=== PATIENT | female | born 1980 | race Two or more races ===

== ENCOUNTER 2019-08-23 13:41 | Emergency (ER) | payer BC ==
[2019-08-23 15:02] VITALS: BP 112/77
[2019-08-23 16:06] LABS: Influenza A Molecular Negative (Negative); Influenza B Molecular Negative (Negative)
--- NOTE | 2019-08-23 16:34 | UC ---
FLU HPI - HPI Summary HPI Summary: 39-year-old woman comes in with a chief complaint of headache chills cough chest pain. Symptoms started 2 days ago with a frontal headache and feeling ill. She developed a cough. Also having chills. Denies any sputum. Yesterday noticed about 15 minutes of sternal sharp chest pain that was worse with deep inspiration. Today she had the same sharp chest pain in the same area for about 2 hours. She has no chest pain now. Denies any shortness of breath. Her mother from a pulmonary embolus. Patient had some left ankle swelling about 2 weeks ago. She's been using compression stockings and has no calf pain or swelling now. No fevers measured but the patient also does not have a thermometer. Patient is 14 weeks . Patient has had an infected right lower molar which she is just finishing one week of amoxicillin for an she is seeing a dentist for it. Denies any pain in the tooth now she has follow-up with a dentist in 1 week. - History of Current Complaint Chief Complaint: UCHeadache Stated Complaint: COUGH HEADACHE Time Seen by Provider: 08/23/19 15:53 Pain Intensity: 6 - Allergy/Home Medications Allergies/Adverse Reactions: Allergies Allergy/AdvReac Type Severity Reaction Status Date / Time No Known Allergies Allergy Verified 08/23/19 15:02 Home Medications: Home Medications Amoxicillin 250 mg PO DAILY 08/23/19 [History Confirmed 08/23/19] 95/Iron Fum/Folic/Dha [ + Dha Combo Pack] 1 tab PO DAILY [History Confirmed 08/23/19] PMH/Surg Hx/FS Hx/Imm Hx Previously Healthy: Yes - Surgical History Surgical History: Yes Surgery Procedure, Year, and Place: appendectomy - Family History Known Family History: Positive: Other - MOTHER; PE - Social History Alcohol Use: None Substance Use Type: None Smoking Status (MU): Never Smoked Tobacco Review of Systems All Other Systems Reviewed And Are Negative: Yes Constitutional: Positive: Other - SEE HPI Skin: Positive: Negative Eyes: Positive: Negative ENT: Positive: Other - SEE HPI Respiratory: Positive: Cough - SEE HPI Cardiovascular: Positive: Chest Pain - SEE HPI Gastrointestinal: Positive: Negative Motor: Positive: Negative Neurovascular: Positive: Negative Musculoskeletal: Positive: Other: - SEE HPI Neurological/Mental Status: Positive: Headache - SEE HPI Psychological: Positive: Negative Is Patient Immunocompromised?: No Physical Exam Triage Information Reviewed: Yes Appearance: Well-Appearing, No Pain Distress, Well-Nourished Vital Signs: Initial Vital Signs Temp 99.9 F 08/23/19 14:55 Pulse 91 08/23/19 14:55 Resp 16 08/23/19 14:55 BP 112/77 08/23/19 14:55 Pulse Ox 99 08/23/19 14:55 Vital Signs Reviewed: Yes Eye Exam: Normal Eyes: Positive: Conjunctiva Clear ENT: Positive: Pharynx normal, TMs normal, Other - Occasional loose cough Neck: Positive: Supple Respiratory: Positive: Chest non-tender, Lungs clear, Normal breath sounds, No respiratory distress Cardiovascular: Positive: RRR Abdomen Description: Positive: Nontender, Soft Musculoskeletal: Positive: Strength Intact, ROM Intact, No Edema - Calves not swollen nontender to palpation. Neurological: Positive: Alert, Muscle Tone Normal Psychological: Positive: Normal Response To Family, Age Appropriate Behavior Skin Exam: Normal Flu Course/Dx - Course Course Of Treatment: Influenza swab negative. Patient has no chest pain here in clinic given that she has no calf pain or swelling or personal history of DVT or pulmonary embolus and no recent travel patient is low risk for pulmonary embolus at this time. He did discuss the signs and symptoms of DVT and pulmonary embolus and I recommended that if she got any other symptoms she needs to be evaluated right away the emergency department. Plan is to treat symptomatically for a viral illness. Patient does not have a primary care doctor but is seeing Dr. Tomlin' s PHYSICAL THERAPIST group. Gave her follow-up information for [facility]. Did discuss if she gets worse she is to go the emergency department. - Differential Dx/Diagnosis Provider Diagnosis: Influenza-like illness, Chest pain Discharge ED - Sign-Out/Discharge Documenting (check all that apply): Patient Departure All imaging exams completed and their final reports reviewed: No Studies - Discharge Plan Condition: Stable Disposition: HOME Patient Education Materials: Chest Pain (ED), Viral Syndrome (ED) Forms: *Work Release Referrals: [facility] [Outside] [facility] [Outside] Additional Instructions: FOLLOW UP WITH YOUR DOCTOR IF NOT COMPLETELY IMPROVED. GET REEVALUATED SOONER IF NOT IMPROVED. GO TO THE EMERGENCY DEPARTMENT IF WORSE; CHEST PAIN, SHORTNESS OF BREATH, CALF PAIN/SWELLING, YOU FEEL ILL OR ANY QUESTIONS OR CONCERNS. - Billing Disposition and Condition Condition: STABLE Disposition: Home
== END 2019-08-23 16:42 | disposition home or self-care (01) ==
LOC: UCEAST 13:41
DX: O99.89 Other specified diseases and conditions complicating pregnancy, childbirth and the puerperium (principal); R07.9 Chest pain, unspecified; R05 Cough; R51 Headache; Z3A.14 14 weeks gestation of pregnancy
CPT/HCPCS: 99211; G0463